=== PATIENT | female | born 1990 | race African-American/Black ===

== ENCOUNTER 2016-04-09 13:54 | Emergency (ER) | payer SELFPAY ==
[~2016-04-09] VITALS: Ht 170.2 cm; Wt 99.8 kg
[~2016-04-09 13:54] MED LIST: ALBU2.5V5 NEB; AMOX1TAB61 PO; BENZ100C PO; LEVO1IUD IY; PRED-220 PO
[2016-04-09 14:03] VITALS: BP 136/66
--- NOTE | 2016-04-09 15:12 | RAD ---
Indication cough and shortness of air. PA and lateral views of the chest were obtained. Comparison is made to an exam 02/12/2016. The heart and pulmonary vessels are normal. The lungs are clear. There is no pleural fluid or pneumothorax. Bony structures appear unremarkable. IMPRESSION: No acute or focal process seen in the chest
--- NOTE | 2016-04-09 15:19 | PHYS DOC ---
Past Medical History Past Medical History: Asthma, Bronchitis Past Surgical History: Additional Information: occasional Alcohol Use: Occasionally Drug Use: None Adult General Chief Complaint Chief Complaint: SORE THROAT HPI HPI Patient is a 25 year old female who presents with cold symptoms for 3 weeks. She has had no drainage and sore throat with nonproductive cough and shortness of breath. She denies any fevers. She was prescribed an unknown antibiotic at the beginning of her illness. She completed the 10 day course on to [facility] 04/18. She has been using her inhaler proximally 6 times daily and her nebulizer machine each evening. She is also using Flonase nasal spray daily. She does not have a PCP. The patient also complains of left knee pain. She has an old injury that causes her pain on the lateral side. She denies any new injury. She has an appointment with an orthopedic doctor next month. Review of Systems Review of Systems Constitutional: Denies fever or chills. [] Eyes: Denies change in visual acuity, redness, or eye pain. [] HENT: Denies ear pain. Reports nasal drainage and sore throat. Respiratory: Reports nonproductive cough and shortness of breath. Cardiovascular: Denies chest pain, palpitations or edema. [] Musculoskeletal: Denies back pain. Reports left knee pain, chronic. Integument: Denies rash or skin lesions. [] Neurologic: Denies headache, focal weakness or sensory changes. [] All systems reviewed and negative unless otherwise stated in the HPI. Allergies Allergies Allergies Coded Allergies Type Severity Reaction Last Updated Verified No Known Drug Allergies 12/10/13 No Physical Exam Physical Exam Constitutional: Well developed, well nourished, no acute distress, non-toxic appearance. [] HENT: Normocephalic, atraumatic, bilateral external ears normal, oropharynx moist, no oral exudates, nose normal. Bilateral TMs without erythema or bulging. There is no posterior pharyngeal erythema or tonsillar edema. Bilateral nasal turbinates are swollen and erythematous with purulent drainage. Eyes: PERRLA, EOMI, conjunctiva normal, no discharge. [] Neck: Normal range of motion, no tenderness, supple, no stridor. [] Cardiovascular: Heart rate regular rhythm, no murmur [] Lungs & Thorax: Bilateral breath sounds clear to auscultation without wheezes, rales, or rhonchi. Skin: Warm, dry, no erythema, no rash. [] Extremities: Left lateral knee tenderness, no cyanosis, no clubbing, ROM intact , no edema. 2+ DP pulse distally. Neurologic: Alert and oriented X 3, normal motor function, normal sensory function, no focal deficits noted. The patient walks with a normal steady gait without assistance. Psychologic: Affect normal, judgement normal, mood normal. [] Current Patient Data Vital Signs Vital Signs Date Time Temp Pulse Resp B/P Pulse Ox O2 Delivery O2 Flow Rate FiO2 04/09/16 14:03 97.9 84 18 98 Room Air 97.9 Lab Values Laboratory Tests Test 04/09/16 14:54 POC Urine HCG, Qualitative hcg negative (Negative) EKG EKG [] Radiology/Procedures Radiology/Procedures REASON: cough, soa PROCEDURE: CHEST PA & LATERAL Indication cough and shortness of air. PA and lateral views of the chest were obtained. Comparison is made to an exam 02/12/2016. The heart and pulmonary vessels are normal. The lungs are clear. There is no pleural fluid or pneumothorax. Bony structures appear unremarkable. IMPRESSION: No acute or focal process seen in the chest Course & Med Decision Making Course & Med Decision Making Pertinent Labs and Imaging studies reviewed. (See chart for details) [] Dragon Disclaimer Dragon Disclaimer This electronic medical record was generated, in whole or in part, using a voice recognition dictation system. Departure Departure Impression: Primary Impression: URI (upper respiratory infection) Additional Impression: Knee pain, chronic Disposition: 01 HOME, SELF-CARE Condition: STABLE Referrals: NO PCP (PCP) Patient Instructions: Knee Pain, [id number], Upper Respiratory Infection, Adult, [id number] Additional Instructions: Your chest x-ray does not show pneumonia. You appear to have a viral upper respiratory infection. Antibiotics do not help with this type of infection. Please complete all the prescribed steroids, even if you are feeling better. Please take the prescribed pain medication as directed. Do not drive or operate heavy machinery while taking pain medication. Please follow-up with an orthopedic doctor for your knee pain. Please follow-up with a primary care provider if your cold symptoms continue. Return to emergency department if Any new or concerning symptoms. Scripts Hydrocodone/Apap 5-325 (Mason 5-325 Tablet)1 Each Tablet1 Tab PO PRN Q6HRS PRN PAIN #15 TAB Prov:MELLISSA RODRIGUEZ 04/09/16 Benzonatate 200 Mg Capsule1 Cap PO TID #30 CAP Prov:MELLISSA RODRIGUEZ 04/09/16 Prednisone 20 Mg [id number] Mg PO DAILY 5 Days Prov:MELLISSA RODRIGUEZ 04/09/16 Albuterol Sulfate (Proair Hfa Inhaler)8.5 Gm Hfa.[id number].[id number] Puff INH Q4HRS PRN SHORTNESS OF BREATH #1 INHALER Prov:MELLISSA RODRIGUEZ 04/09/16 Problem Qualifiers Primary Impression: URI (upper respiratory infection) URI type: unspecified viral URI Qualified Code: J06.9 - Acute upper respiratory infection, unspecified Additional Impression: Knee pain, chronic Laterality: left Qualified Code: M25.562 - Pain in left knee MELLISSA RODRIGUEZ Apr 09, 2016 15:19
[2016-04-09] MEDS ORDERED: PROAIR HFA8.5 GM INH (15:36)
[2016-04-09] MEDS ORDERED: PRED20TA PO (15:36)
[2016-04-09] MEDS ORDERED: BENZ200C39 PO (15:36)
[2016-04-09] MEDS ORDERED: HYDR-971 PO (15:36)
== END 2016-04-09 15:45 | disposition home or self-care (01) ==
LOC: ER 13:54
DX: J06.9 Acute upper respiratory infection, unspecified (principal); G89.29 Other chronic pain; M25.562 Pain in left knee; J45.909 Unspecified asthma, uncomplicated; Z79.899 Other long term (current) drug therapy
CPT/HCPCS: 71020; 81025; 99284

== ENCOUNTER 2017-04-07 10:10 | Observation (INO) | payer OTHER ==
[2017-04-07] MEDS: ONDANSETRON PF 4 MG/2 ML VIAL. IV ×2 (11:50)
[2017-04-07] MEDS: IV DEXTROSE 5%-LACT RINGERS 1,000 ML IV ×4 (11:50→22:56)
[2017-04-07 11:57] LABS: ADD MAN DIFF? NO
[2017-04-07 12:01] LABS: BASO % 1 % (0-3); EOS # 0.1 x10^3/uL (0.0-0.7); EOS % 1 % (0-3); HEMATOCRIT 34.6 % (36.0-47.0); HEMOGLOBIN 11.8 g/dL (12.0-15.5); LYMPH % 14 % (24-48); MEAN CORPUSCULAR HEMOGLOBIN 30 pg (25-35); MEAN CORPUSCULAR HGB CONC 34 g/dL (31-37); MEAN CORPUSCULAR VOLUME 87 fL (79-100); MONO # 0.7 x10^3/uL (0.0-1.1); MONO % 10 % (0-9); NEUT # 5.5 x10^3uL (1.8-7.7); NEUT % 74 % (31-73); PLATELET COUNT 254 x10^3/uL (140-400); RED BLOOD COUNT 3.96 x10^6/uL (3.50-5.40); RED CELL DISTRIBUTION WIDTH 14.5 % (11.5-14.5); WHITE BLOOD COUNT 7.4 x10^3/uL (4.0-11.0)
[2017-04-07 12:52] LABS: ANION GAP 9 (6-14); CARBON DIOXIDE 23 mmol/L (21-32); CHLORIDE 101 mmol/L (98-107); POTASSIUM 3.8 mmol/L (3.5-5.1); SODIUM 133 mmol/L (136-145)
[2017-04-07] MEDS ORDERED: POTASSIUM CHLORIDE 20MEQ 50 ML IV ×2 (13:15)
[2017-04-07] MEDS ORDERED: POTASSIUM ACETATE IV (13:30)
[2017-04-07] MEDS ORDERED: NORMAL SALINE IV (13:30)
[2017-04-07] MEDS: ACETAMINOPHEN 325 MG TABLET. PO ×4 (14:07→22:55)
[2017-04-07] MEDS: POTASSIUM CHLORIDE 10 MEQ in IV NORMAL SALINE 100ML 100 ML IV ×2 (14:07→15:49)
[2017-04-07] MEDS: FAMOTIDINE 20 MG/2 ML VIAL IVP ×2 (15:36)
[2017-04-07] MEDS ORDERED: FAMOTIDINE 20 MG/2 ML VIAL IVP ×2 (21:00)
[2017-04-08] MEDS: IV DEXTROSE 5%-LACT RINGERS 1,000 ML IV ×2 (03:30)
== END 2017-04-08 10:30 | disposition home or self-care (01) ==
LOC: 3 SO LND 10:10
DX: O21.2 Late vomiting of pregnancy (principal); O26.893 Other specified pregnancy related conditions, third trimester; R19.7 Diarrhea, unspecified; R10.9 Unspecified abdominal pain; M54.9 Dorsalgia, unspecified; Z3A.27 27 weeks gestation of pregnancy
CPT/HCPCS: 36415; 80051; 85025; 96361; 96374; 96375; G0378; G0379; J2405; S0028